=== PATIENT | female | born 1960 | race Caucasian/White ===

== ENCOUNTER 2018-07-13 10:42 | Day surgery (SDC) | payer OTHER ==
[2018-07-02 18:51] VITALS: BMI 37.5
[2018-07-13] MEDS ORDERED: methylPREDNISolone ACET (DEPO) 40 MG/1 ML VIAL ONE (14:21)
[2018-07-13] MEDS ORDERED: BUPIVACAINE HCL/PF 2.5 MG/ML - 30 ML VIAL IJ ONE (14:21)
[2018-07-13] MEDS ORDERED: BENZOIN/ALOE VERA/STORAX/TOLU 58 ML BOTTLE ONE (14:40)
[2018-07-13] MEDS ORDERED: ePHEDrine SULFATE 50 MG/1 ML AMPULE ONE (14:46)
[2018-07-13] MEDS ORDERED: BUPIVACAINE HCL/PF 0.25% (2.5MG/ML) 10 ML VIAL IJ ONE (15:10)
[2018-07-13] MEDS ORDERED: methylPREDNISolone ACET (DEPO) 40 MG/1 ML VIAL IM ONE (15:10)
[2018-07-13] MEDS ORDERED: ONDANSETRON 4 MG/2 ML VIAL ONE (15:36)
--- NOTE | 2018-07-13 15:48 | OP ---
Operative Note - Note: Operative Date: 07/13/18 Pre-Operative Diagnosis: Internal derangement right knee Operation: Surgical arthroscopy right knee. Debridement Findings: Tricompartment osteoarthritis Post-Operative Diagnosis: Same as Pre-op Surgeon: Juan Duff Manager Club: Charles Ricks Anesthesiologist/FLOORHAND: Janeth Jordan Anesthesia: General Estimated Blood Loss (mls): 0 Fluid Volume Replaced (mls): 900 (Crystalloid) Operative Report Dictated: Yes
[2018-07-13 15:52] VITALS: TEMP 97.9
[2018-07-13] MEDS ORDERED: ACETAMINOPHEN 325 MG TABLET (FP) PO PRN (16:12)
[2018-07-13] MEDS ORDERED: ONDANSETRON 4 MG/2 ML VIAL IVPUSH PRN (16:12)
[2018-07-13] MEDS ORDERED: oxyCODONE HCL 5 MG TABLET PO PRN ×2 (16:12)
[2018-07-13] MEDS ORDERED: LACTATED RINGERS SOLUTION 1,000 ML IV SCH (16:15)
[2018-07-13] MEDS ORDERED: oxyCODONE HCL 5 MG TABLET ONE (16:23)
[2018-07-13 17:45] VITALS: BP 126/78; PULSE 67
--- NOTE | 2018-07-14 09:15 | OP ---
DATE OF OPERATION: DATE OF DICTATION: 07/13/2018 SURGEON: Juan Duff MD PREOPERATIVE DIAGNOSIS: Medial meniscal tear with osteoarthritis, knee. POSTOPERATIVE DIAGNOSIS: Tricompartmental osteoarthritis, left (severe grade 4) . ANESTHESIA: General. ANTIBIOTIC GIVEN: 2 g Kefzol. OPERATION PERFORMED: Diagnostic arthroscopy and debridement right knee with washout. DESCRIPTION OF PROCEDURE: The patient was correctly identified and brought into the operating room. The right lower extremity was prepped and free draped in the routine manner with a Betadine scrub solution, wiped with alcohol, DuraPrep applied. Tourniquet applied and set at 350 mmHg. Tourniquet time approximately 15 minutes. A time-out was called. Under general anesthesia, right lower extremity an incision was made in the anterolateral aspect of the knee. The arthroscopy instrumentation inserted. A severe degree of arthritis found in the retropatellar surface trochlear groove, the medial, and worse the lateral femoral condyle, and the lateral tibial plateau. The menisci were noted and found to be fully intact. A washout was performed to washout biological products from the knee. Marcaine steroid was instilled into the knee, and the portal was closed with 3-0 nylon. This lady needs a total knee arthroplasty. MD CARLA Lucio/[id number] MTDD
== END 2018-07-13 17:45 | disposition home or self-care (01) ==
LOC: FASU 10:42
PROVIDERS: ATTEND Orthopaedic Surgery Orthopaedic Surgery of the Spine
PROC: 0SJD4ZZ Inspection of Left Knee Joint, Percutaneous Endoscopic Approach (ICD-10-PCS; principal; 2018-07-13 13:15)
DX: M17.12 Unilateral primary osteoarthritis, left knee (principal)
CPT/HCPCS: 94760